=== PATIENT | male | born 1985 | race African-American/Black ===

== ENCOUNTER 2019-12-16 11:19 | Emergency (ER) | payer OTHER, SELFPAY ==
[2019-12-16 11:26] VITALS: BP 118/73; PULSE 70; RESP 20; TEMP 36.7; O2SAT 99
--- NOTE | 2019-12-16 11:29 | ED.SKABFB ---
HPI - Skin/Abscess/Foreign Bdy General Chief complaint: Extremity Problem,Nontraumatic Stated complaint: lump on right elbow Time Seen by Provider: 12/16/19 11:29 Source: patient and RN notes reviewed History of Present Illness HPI narrative: Patient is a 34-year-old male who presents the urgent care with complaints of right elbow pain and swelling. Patient states that started on Tuesday and is become more painful. 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 Patient has not done anything [id number] for relief. No other acute complaints. No acute distress noted. Patient read the plan of care. Related Data Home Medications Medication Instructions Recorded Confirmed No Home Medications 12/16/19 12/16/19 Allergies Allergy/AdvReac Type Severity Reaction Status Date / Time No Known Allergies Allergy Verified 12/16/19 11:32 Review of Systems Review of Systems: Narrative: CONSTITUTIONAL: Denies fever, chills, or sweats. EYES: Denies visual changes, redness, or discharge. ENT: Denies rhinorrhea, congestion, sore throat, or otalgia. CARDIOVASCULAR: Denies chest pain, palpitations, or edema. RESPIRATORY: Denies cough or dyspnea. GASTROINTESTINAL: Denies abdominal pain, nausea, vomiting, or diarrhea. GENITOURINARY: Denies dysuria or hematuria. SKIN: Denies rash or itching. MUSCULOSKELETAL: Reports of right elbow pain and swelling NEUROLOGIC: Denies headache, numbness, or weakness. All other systems reviewed are negative, except as documented in HPI. PMFSH Comments At the time of my signature, I reviewed and agree with the nursing past medical, surgical, social, and family history. There is no relevant family history pertinent to the patient complaint. Exam Narrative: Exam Narrative: GENERAL: This is a well-nourished, well-developed patient, in no apparent distress. HEAD: normocephalic, atraumatic. EYES: PERRL. Sclera clear/white. Vision is grossly intact. EARS: External ears normal NOSE: External nose normal with no obvious nasal discharge, nares without redness, no rhinorrhea. THROAT: Mucous membranes moist NECK: Neck supple SKIN: warm, intact with no suspicious lesions or rash, good texture and turgor. NEURO: awake, alert, and oriented to person, place and time. There were no obvious focal neurologic abnormalities. EXTREMITIES: Moderate fluctuant bursitis noted to the right elbow with mild pain. Positive strong right radial pulse with capillary refill less than 2 seconds. Course Vital Signs Vital signs: Vital Signs Temperature 98.1 F 12/16/19 11:26 Pulse Rate 70 12/16/19 11:26 Respiratory Rate 20 12/16/19 11:26 Blood Pressure 118/73 12/16/19 11:26 Pulse Oximetry 99 12/16/19 11:26 Temperature 98.1 F 12/16/19 11:26 Pulse Rate 70 12/16/19 11:26 Respiratory Rate 20 12/16/19 11:26 Blood Pressure 118/73 12/16/19 11:26 Pulse Oximetry 99 12/16/19 11:26 Reviewed MDM - Skin/Abscess/Foreign Bdy MDM Narrative Medical decision making narrative: Advised the patient to use [id number] Tylenol/ibuprofen as needed for pain. May wrap a light Bryson wrap over the area to decrease decrease swelling. Use ice on the area intermittently throughout the day. Do not rest on the right elbow for any period of time. 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 Unfortunately, our facility cannot give you any restrictions for work. If you develop any increase in pain associated with swelling and redness or fever?go to the emergency room. Follow-up with your doctor within 2 to 5 days or for worsening symptoms or failure to improve. Differential Diagnosis Differential diagnosis: Likely abscess of skin or subcutaneous tissue, urticaria, cellulitis, impetigo and contact dermatitis Discharge Plan Discharge Clinical Impression: Bursitis of right elbow Qualifiers: Elbow bursitis location: olecrano
== END 2019-12-16 11:41 | disposition home or self-care (01) ==
PROVIDERS: Emergency Provider Nurse Practitioner Family
DX: M70.21 Olecranon bursitis, right elbow (principal)
CPT/HCPCS: 99212; G0463